=== PATIENT | male | born 1995 | race Caucasian/White ===

== ENCOUNTER 2016-04-03 19:13 | Emergency (ER) | payer OTHER ==
[2016-04-03 19:30] VITALS: BP 121/66; PULSE 88; TEMP 98.7; BMI 21.4
--- NOTE | 2016-04-03 20:30 | PDOC ---
[id number] 04/03/16 19:27 04/03/16 19:27 04/03/16 19:27 04/03/16 19:27 04/03/16 19:27 Medical Decision Making - Medical Decision Making 04/03/16 20:29 agree with care from AMBULATORY SERVICE REPRESENTATIVE Maciej *DC/Admit/Observation/Transfer Diagnosis at time of Disposition: Abdominal pain, Gastritis - Discharge Dispostion Disposition: HOME - Prescriptions Prescriptions: Famotidine [Pepcid] 20 mg PO DAILY #14 tablet Pantoprazole Sodium [Protonix] 40 mg PO BID #28 tablet.dr - Referrals Referrals: Brittni Pierre [Primary Care Provider] - - Patient Instructions Printed Discharge Instructions: DI for Gastritis Additional Instructions: FOLLOW UP WITH YOUR DOCTOR NEEDED. TAKE MEDICATIONS PRESCRIBED. DRINK LOTS OF WATER. DRINK GINGERALE AND EAT BREAD UNTIL ABLE TO TOLERATE REGULAR FOODS. Print Language: AMHARIC
[2016-04-03] MEDS ORDERED: MAG HYDROX/AL HYDROX/SIMETH 30 ML UNIT-DOSE CUP PO ONE (20:52)
[2016-04-03] MEDS ORDERED: LIDOCAINE VISCOUS 2% ORAL/TOP 20 ML UNIT-DOSE CUP MM ONE (20:52)
[2016-04-03] MEDS ORDERED: DICYCLOMINE HCL 10 MG/5 ML PO ONE (20:52)
[2016-04-03] MEDS ORDERED: MAG HYDROX/AL HYDROX/SIMETH 30 ML UNIT-DOSE CUP ONE (21:14)
[2016-04-03] MEDS ORDERED: DICYCLOMINE HCL 10 MG CAPSULE ONE (21:14)
[2016-04-03] MEDS ORDERED: LIDOCAINE HCL/PF 1% SDV 5ML VIAL ONE (21:15)
--- NOTE | 2016-04-03 21:19 | PDOC ---
History of Present Illness - General Chief Complaint: Pain, Acute Stated Complaint: ABDOMINAL PAIN Time Seen by Provider: 04/03/16 20:27 History Source: Patient Exam Limitations: No Limitations - History of Present Illness Travel History: No Initial Comments: 04/03/16 21:14 20yo Male patient presents to ED c/o lower abd pain after eating chicken tenders. Patient reports while explaining to his parents why his stomach was hurting; he had feelings of wanting to pass out. He states he did have a BM prior to coming to ED and it was normal. Denies n/v/d, fever, back pain, CP, diff breathing, or any other complaints at this time. + Marijuana use. Brittni Wheatley PCP Timing/Duration: reports: resolved prior to arrival Quality: reports: mild Abdominal Pain Onset Location: reports: generalized abdomen Pain Radiation: reports: no radiation Activities at Onset: reports: eating Treatment Prior to Arrive: worse with: analgesics, antacids, cold pack, heat, laxative, enema, other Aggravating Factors: worse with: None, Defecation, Eating, Emotional upset, Exertion, [place], Movement, Voiding, Change in position Alleviating Factors: improves with: Defecation Past History - Travel Traveled outside of the country in the last 30 days: No Close contact w/someone who was outside of country & ill: No - Past Medical History Allergies/Adverse Reactions: Allergies Allergy/AdvReac Type Severity Reaction Status Date / Time No Known Allergies Allergy Verified 04/03/16 19:26 Home Medications: Ambulatory Orders Famotidine [Pepcid] 20 mg PO DAILY #14 tablet 04/03/16 Pantoprazole Sodium [Protonix] 40 mg PO BID #28 tablet. 04/03/16 - Psycho/Social/Smoking Cessation Hx Suicidal Ideation: No Smoking History: Current every day smoker Information on smoking cessation initiated: No Abd/GI Specific PMHX - Complaint Specific PMHX Colitis: No Diverticulitis: No Gall Bladder Disease: No GERD: No Hepatitis: No Irritable Bowel Synd (IBS): No Pancreatitis: No GI Ulcer Disease: No Review of Systems - Review of Systems Able to Perform ROS?: Yes Is the patient limited Syrian proficient: No Constitutional: No: Chills, Fever HEENTM: No: Blurred Vision, Double Vision, Ear Discharge, Nose Congestion, Nose Bleeding, Dental Problems, Difficulty Swallowing Respiratory: No: Cough, Orthopnea, Shortness of Breath, Stridor, Wheezing Cardiac (ROS): No: Chest Pain, Edema, Lightheadedness, Palpitations, Syncope ABD/GI: Yes: Other (Abdominal Pain). No: Abdominal Distended, Abd. Pain w/ defecation, Blood Streaked Bowels, Constipated, Diarrhea, Difficulty Swallowing , Nausea, Poor Appetite, Poor Fluid Intake, Rectal Bleeding, Vomiting, Indigestion : No: Burning, Dysuria, Frequency, Flank Pain Musculoskeletal: No: Back Pain, Joint Pain, Muscle Pain Integumentary: Yes: Sweating. No: Bruising, Pallor, Rash Neurological: Yes: Other (Near Syncope). No: Headache, Numbness, Paresthesia, Seizure, Tingling, Tremors, Weakness, Ataxia, Dizziness Psychiatric: Yes: Anxiety. No: Depression, Frequent Crying, Stressors, Emotional Problems, Change in Appetite All Other Systems: Reviewed and Negative *Physical Exam - Vital Signs Last Vital Signs Temp Pulse Resp BP Pulse Ox 98.7 F 88 18 121/66 99 04/03/16 19:27 04/03/16 19:27 04/03/16 19:27 04/03/16 19:27 04/03/16 19:27 - Physical Exam General Appearance: Yes: Nourished, Appropriately Dressed. No: Apparent Distress, Mild Distress, Moderate Distress, Severe Distress Neck: positive: Trachea midline, Supple. negative: Decreased range of motion, Stridor, Lymphadenopathy (R), Lymphadenopathy (L) Respiratory/Chest: positive: Lungs Clear, Normal Breath Sounds. negative: Accessory Muscle Use, Labored Respiration, Decreased Breath Sounds, Stridor, Wheezing Cardiovascular: positive: Regular Rhythm, Regular Rate Gastrointestinal/Abdominal: positive: Soft, Increased Bowel Sounds. negative: Normal Bowel Sounds, Tender, Distended, Guarding, Rebound, Tenderness Lymphatic: negative: Adenopathy Musculoskeletal: positive: Normal Inspection. 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, Fully Oriented, Alert, Normal Mood/ Affect, Normal Response, Motor Strength 5/5 *DC/Admit/Observation/Transfer Diagnosis at time of Disposition: Abdominal pain Qualifiers: Abdominal location: lower abdomen, unspecified Qualified Code(s): R10.30 - Lower abdominal pain, unspecified Gastritis Qualifiers: Gastritis type: superficial Chronicity: acute Gastritis bleeding: without bleeding Qualified Code(s): K29.00 - Acute gastritis without bleeding - Discharge Dispostion Disposition: HOME Condition at time of disposition: Good Admit: No - Prescriptions Prescriptions: Famotidine [Pepcid] 20 mg PO DAILY #14 tablet Pantoprazole Sodium [Protonix] 40 mg PO BID #28 tablet.dr - Patient Instructions Printed Discharge Instructions: DI for Gastritis Additional Instructions: FOLLOW UP WITH YOUR DOCTOR NEEDED. TAKE MEDICATIONS PRESCRIBED. DRINK LOTS OF WATER. DRINK GINGERALE AND EAT BREAD UNTIL ABLE TO TOLERATE REGULAR FOODS. Print Language: GEORGIAN
== END 2016-04-03 22:24 | disposition home or self-care (01) ==
LOC: JER 19:13
DX: K29.00 Acute gastritis without bleeding (principal)
CPT/HCPCS: 99282-25

== ENCOUNTER 2016-04-13 11:40 | Emergency (ER) | payer OTHER ==
[2016-04-13 11:46] VITALS: BP 139/76; PULSE 88; TEMP 98; BMI 19.5
--- NOTE | 2016-04-13 13:38 | PDOC ---
History of Present Illness - General Chief Complaint: Ear Problem Stated Complaint: EAR PAIN (BOTH), ABD PAIN Time Seen by Provider: 04/13/16 12:54 History Source: Patient Exam Limitations: No Limitations - History of Present Illness Initial Comments: 04/13/16 13:35 20 year old male with no surgical history, seen and treated 2 weeks ago for gastritis taking protonix and pepcid. Presents with father today complaining of ringing in right ear, with no dizziness or lightheadedness. Admits to using earphones/earbud at high volumes and cleaning with q-tips. Timing/Duration: 24 hours Severity: mild Modifying Factors: improves with: other (no intervention so far) Associated Symptoms: reports: denies symptoms Aspirin Received prior to arrival: Yes: no aspirin today Asa Contraindications(Core Measure): No: Allergy Beta Luiz Contraindications(Core Measure): Yes: Not Prescribed Beta Luiz Given by EMS(Core Measure): No Beta Luiz Taken at Home(Core Measure): No Past History - Travel Traveled outside of the country in the last 30 days: No Close contact w/someone who was outside of country & ill: No - Past Medical History Allergies/Adverse Reactions: Allergies Allergy/AdvReac Type Severity Reaction Status Date / Time No Known Allergies Allergy Verified 04/13/16 11:46 Home Medications: Ambulatory Orders Carbamide Peroxide [Debrox] 15 ml OT BID #1 drops 04/13/16 - Psycho/Social/Smoking Cessation Hx Suicidal Ideation: No Smoking History: Never smoked Information on smoking cessation initiated: No Review of Systems - Review of Systems Able to Perform ROS?: Yes Is the patient limited Wolof proficient: No Constitutional: No: Chills, Diaphoresis, Night Sweats, Weakness, Weight Stable HEENTM: Yes: Ear Pain (right ear with ringing sensation). No: Double Vision, Cataracts, Hearing Loss, Throat Pain, Throat Swelling, Mouth Pain, Difficulty Swallowing, Mouth Swelling Respiratory: No: Cough, Orthopnea, Shortness of Breath, SOB at Rest, Wheezing, Productive cough Cardiac (ROS): No: Lightheadedness, Palpitations, Syncope Neurological: No: Paresthesia, Pre-Existing Deficit, Weakness Psychiatric: No: Depression, Mood Swings, Change in Appetite *Physical Exam - Vital Signs Last Vital Signs Temp Pulse Resp BP Pulse Ox 98 F 88 18 139/76 98 04/13/16 11:42 04/13/16 11:42 04/13/16 11:42 04/13/16 11:42 04/13/16 11:42 - Physical Exam General Appearance: Yes: Nourished, Appropriately Dressed. No: Apparent Distress HEENT: positive: EOMI, [place], TMs Normal, Pharynx Normal. negative: TM Bulging, TM Dull, TM Erythema Neck: positive: Supple. negative: Lymphadenopathy (R), Lymphadenopathy (L), Rigidity Respiratory/Chest: positive: Lungs Clear, Normal Breath Sounds. 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, Fully Oriented, Alert, Normal Mood/ Affect Medical Decision Making - Medical Decision Making 04/13/16 13:38 20 year old male with history of gastritis had tinnitis tinnitis -referred to pmd -rx: debrox for cleaning of ear -instructed to decrease volume in ear *DC/Admit/Observation/Transfer Diagnosis at time of Disposition: Ringing in the ear Qualifiers: Laterality: right Qualified Code(s): H93.11 - Tinnitus, right ear - Discharge Dispostion Disposition: HOME Admit: No - Prescriptions Prescriptions: Carbamide Peroxide [Debrox] 15 ml OT BID #1 drops - Referrals Referrals: Brittni Pierre [Primary Care Provider] - - Patient Instructions Printed Discharge Instructions: Ringing in the Ears Additional Instructions: Please use earbuds at low volume. Be gently when using q-tips. Call primary physician for an appointment for physical.
== END 2016-04-13 13:40 | disposition home or self-care (01) ==
LOC: JERFT 11:40
DX: H93.11 Tinnitus, right ear (principal)
CPT/HCPCS: 99281-25